=== PATIENT | male | born 1965 | race Caucasian/White ===

== ENCOUNTER 2021-01-09 17:02 | Emergency (ER) | payer MEDICAID ==
[~2021-01-09] VITALS: Ht 167.6 cm; Wt 59.1 kg
[2021-01-09 17:13] VITALS: Ht 167.6 cm; Wt 59.1 kg
[2021-01-09] MEDS ORDERED: DILANTIN30 MG (17:20)
[2021-01-09] MEDS ORDERED: DEPAKOTE125 MG (17:20)
[2021-01-09] MEDS ORDERED: FUROSEMIDE20 MG (17:21)
[2021-01-09] MEDS ORDERED: GLUCOPHAGE500 MG (17:21)
[2021-01-09] MEDS ORDERED: HYDROCODON-ACE1 EAC7 (17:21)
[2021-01-09 17:53] LABS: BASOPHILS 1.4 % (0-2); EOSINOPHILS 0.4 % (0-7); HEMATOCRIT 38.3 % (42.0-54.0); HEMOGLOBIN 12.7 g/dL (13.5-17.5); IMMATURE GRANULOCYTES 0.2 % (0-5); LYMPHOCYTE ABS# 2.47 10x3/uL (1.32-3.57); LYMPHOCYTES 17.6 % (15-50); MCH 31.4 pg (26.0-34.0); MCHC 33.2 g/dL (31.0-37.0); MCV 94.8 fL (80.0-100.0); MONOCYTES 6.7 % (2-11); NEUTROPHIL ABS# 10.35 10x3/uL (1.78-5.38); NEUTROPHILS 73.7 % (40-80); PLATELET COUNT 377 10x3/uL (130-400); RBC 4.04 10x6/uL (4.20-6.10); RDW 15.8 % (11.5-14.5)
[2021-01-09 18:06] LABS: UDS - AMPHET NEGATIVE QUAL (NEGATIVE); UDS - BARB NEGATIVE QUAL (NEGATIVE); UDS - BENZO POSITIVE QUAL (NEGATIVE); UDS - COCAINE NEGATIVE QUAL (NEGATIVE); UDS - OPIATE NEGATIVE QUAL (NEGATIVE); UDS - PCP NEGATIVE QUAL (NEGATIVE); UDS - THC POSITIVE QUAL (NEGATIVE)
[2021-01-09 18:06] LABS: CALC OSMOLALITY 283 mosm/kg (275-300); CALCIUM 8.8 mg/dL (8.5-10.1); CARBON DIOXIDE 25.6 mmol/L (21.0-32.0); CHLORIDE - SERUM 104 mmol/L (98-107); CREATININE - SERUM 0.7 mg/dL (0.6-1.3); GLUCOSE 90 mg/dL (74-106); POTASSIUM - SERUM 3.7 mmol/L (3.5-5.1); SODIUM 143 mmol/L (136-145); UREA NITROGEN 9 mg/dL (7-18); eGFR NON AFRICAN AMERICAN > 90 mL/min (90-120)
[2021-01-09 18:15] LABS: KETONE SMALL mg/dL (NEGATIVE); NITRITE NEGATIVE (NEGATIVE)
[2021-01-09 18:16] LABS: BILIRUBIN NEGATIVE (NEGATIVE); UROBILINOGEN NORMAL mg/dL (< 2)
[2021-01-09 18:27] LABS: ALBUMIN 3.4 g/dL (3.4-5.0); ALKALINE PHOSPHATASE 137 U/L (30-120); ALT (SGPT) 74 U/L (10-68); BILIRUBIN - TOTAL 0.24 mg/dL (0.2-1.3); CKMB 2.8 U/L (0.0-3.6); CREATINE KINASE 215 UL (21-232); LIPASE 314 U/L (73-393); MAGNESIUM - SERUM 1.9 mg/dL (1.8-2.4); PROTEIN - SERUM 8.3 g/dL (6.4-8.2); TROPONIN-I < 0.017 ng/mL (0.000-0.060)
[2021-01-09 18:52] LABS: APTT 30.9 SECONDS (22.8-39.4); INR 1.01 (0.85-1.17); PROTIME 12.3 SECONDS (11.6-15.0)
--- NOTE | 2021-01-09 22:00 | NUR ---
ENTERED PT ROOM PT WAS OUT OF BED WRAPPED IN PIV. ASSISTED PT BACK INTO BED. PIV ON FLOOR WITH CATHETER INTACT. INSERTED 20G PIV TO LT INNER FOREARM X 1 STICK. PROVIDED NOURISHMENT PER REQUEST. ENCOURAGED PT TO USE CALL LIGHT BEFORE GETTING OUT OF BED PT VOICED UNDERSTANDING. BED LOW WITH CALL LIGHT IN REACH. DENIED OTHER NEEDS AT THIS TIME. UPDATED BEDSIDE NURSE WITH UPDATES.
[2021-01-10 06:55] VITALS: BP 164/95
== END 2021-01-10 06:58 | disposition home or self-care (01) ==
LOC: D.ER 17:02
PROVIDERS: Family Medicine
DX: F10.129 Alcohol abuse with intoxication, unspecified (principal); Y90.8 Blood alcohol level of 240 mg/100 ml or more; E11.9 Type 2 diabetes mellitus without complications; I11.0 Hypertensive heart disease with heart failure; I50.9 Heart failure, unspecified; J44.9 Chronic obstructive pulmonary disease, unspecified; Z72.0 Tobacco use; Z79.84 Long term (current) use of oral hypoglycemic drugs; R07.9 Chest pain, unspecified

== ENCOUNTER 2021-01-12 18:11 | Emergency (ER) | payer MEDICAID ==
[~2021-01-12] VITALS: Ht 167.6 cm; Wt 61.4 kg
[~2021-01-12 18:11] MED LIST: DEPAKOTE125 MG; DILANTIN30 MG; FUROSEMIDE20 MG; GLUCOPHAGE500 MG; HYDROCODON-ACE1 EAC7
[2021-01-12 18:23] VITALS: Ht 167.6 cm; Wt 61.4 kg
[2021-01-12 18:39] LABS: BILIRUBIN NEGATIVE (NEGATIVE); KETONE NEGATIVE (NEGATIVE); NITRITE NEGATIVE (NEGATIVE); UROBILINOGEN NORMAL mg/dL (< 2)
[2021-01-12 18:47] LABS: BASOPHILS 0.5 % (0-2); HEMATOCRIT 37.8 % (42.0-54.0); HEMOGLOBIN 12.4 g/dL (13.5-17.5); IMMATURE GRANULOCYTES 0.3 % (0-5); LYMPHOCYTE ABS# 1.53 10x3/uL (1.32-3.57); LYMPHOCYTES 10.9 % (15-50); MCH 31.2 pg (26.0-34.0); MCHC 32.8 g/dL (31.0-37.0); MEAN PLATELET VOLUME 10.5 fL (7.4-10.4); MONOCYTES 8.1 % (2-11); NEUTROPHIL ABS# 11.07 10x3/uL (1.78-5.38); NEUTROPHILS 79.2 % (40-80); PLATELET COUNT 212 10x3/uL (130-400); RBC 3.98 10x6/uL (4.20-6.10); RDW 15.4 % (11.5-14.5)
[2021-01-12 18:51] LABS: UDS - AMPHET NEGATIVE QUAL (NEGATIVE); UDS - BARB NEGATIVE QUAL (NEGATIVE); UDS - BENZO POSITIVE QUAL (NEGATIVE); UDS - COCAINE NEGATIVE QUAL (NEGATIVE); UDS - OPIATE NEGATIVE QUAL (NEGATIVE); UDS - PCP NEGATIVE QUAL (NEGATIVE); UDS - THC NEGATIVE QUAL (NEGATIVE)
[2021-01-12 18:53] LABS: CALC OSMOLALITY 282 mosm/kg (275-300); CALCIUM 8.9 mg/dL (8.5-10.1); CARBON DIOXIDE 25.7 mmol/L (21.0-32.0); CHLORIDE - SERUM 105 mmol/L (98-107); CREATININE - SERUM 0.7 mg/dL (0.6-1.3); GLUCOSE 109 mg/dL (74-106); POTASSIUM - SERUM 3.4 mmol/L (3.5-5.1); SODIUM 142 mmol/L (136-145); UREA NITROGEN 10 mg/dL (7-18); eGFR NON AFRICAN AMERICAN > 90 mL/min (90-120)
[2021-01-12 19:06] LABS: ALBUMIN 3.2 g/dL (3.4-5.0); ALKALINE PHOSPHATASE 119 U/L (30-120); ALT (SGPT) 58 U/L (10-68); AMYLASE - SERUM 107 U/L (25-115); BILIRUBIN - TOTAL 0.23 mg/dL (0.2-1.3); LIPASE 369 U/L (73-393); MAGNESIUM - SERUM 1.8 mg/dL (1.8-2.4); PROTEIN - SERUM 7.9 g/dL (6.4-8.2)
[2021-01-12 19:07] LABS: TROPONIN-I < 0.017 ng/mL (0.000-0.060)
[2021-01-12 19:09] LABS: SARS-CoV-2 ANTIGEN NEGATIVE- SARS-COV-2 (NEGATIVE)
[2021-01-12] MEDS ORDERED: LEVAQUIN750 MG PO (20:36)
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
[2021-01-13 18:36] VITALS: BP 136/97
== END 2021-01-14 05:32 ==
LOC: D.ER 18:11
PROVIDERS: Family Medicine
DX: J18.9 Pneumonia, unspecified organism (principal); K29.20 Alcoholic gastritis without bleeding; E87.6 Hypokalemia; D72.829 Elevated white blood cell count, unspecified; R45.851 Suicidal ideations; Z48.02 Encounter for removal of sutures; F10.129 Alcohol abuse with intoxication, unspecified; Y90.8 Blood alcohol level of 240 mg/100 ml or more; I11.0 Hypertensive heart disease with heart failure; I50.9 Heart failure, unspecified; E11.9 Type 2 diabetes mellitus without complications; J44.9 Chronic obstructive pulmonary disease, unspecified; Z72.0 Tobacco use; Z79.84 Long term (current) use of oral hypoglycemic drugs